=== PATIENT | female | born 1980 | race Caucasian/White ===

== ENCOUNTER 2016-12-19 09:58 | Emergency (ER) | payer OTHER ==
--- NOTE | 2016-12-19 11:32 | ED NURSING NOTES ---
Clinical Report - Nurses [facility] [address] [place] [address] 12/19/2016 10:00 Patient: MERON LUNA TRIAGE Triage time 10:07. Acuity: LEVEL 3. Chief Complaint: REDNESS and PAIN TO LEFT EYE. SWELLING TO LEFT EYELID. Alert. No acute distress. VISUAL ACUITY: Visual acuity performed without corrective lenses: left eye 20/100; right eye 20/70 (pt states she is supposed to wear glasses but doen'st have any). RAJ COMA SCORE: [place] Coma Scale: 15- eyes open spontaneously (4); best verbal response- oriented x 4 (5); best motor response- obeys commands (6). --10:14 Ledy Aragon R.N. 10:06 12/19/16. BP: 128/72. HR: 92. RR: 18. O2 saturation: 95% on room air. Temp: 98 F (oral). Pain level now: 06/24. --10:14 Ledy Aragon R.N. Weight: 133.3 kg stated. Height/Length: 60 inches Per Patient. BMI: 57.4. --10:11 Ledy Aragon R.N. Medications Abilify Oral. Albuterol Sulfate Inhalation (inhaler and nebulizer). ClonazePAM Oral. Singulair Oral. --10:08 Ledy Aragon R.N. Medication/allergy information source: the patient and patient's family. --10:14 Ledy Aragon R.N. Allergies Bees. --10:09 Ledy Aragon R.N. Depakote. --10:09 Ledy Aragon R.N. History Arrived by private vehicle. Historian: patient. Accompanied by family. Primary physician ([facility] David). This started today. She did not sustain an injury. PAST MEDICAL HX: Last normal menstrual period now. SOCIAL HX: Heavy tobacco smoker- less than 1 pack per day. History of drug use: marijuana. No alcohol use. FALL RISK ASSESSMENT: Fall risk assessment completed. No fall risk identified. FUNCTIONAL ASSESSMENT: Functional assessment: no impairments noted. LEARNING NEEDS ASSESSMENT: The learning needs assessment revealed no barriers. --10:14 Ledy Aragon R.N. PROBLEMS: Eczema. Depression. Asthma. Anxiety Reaction. --10:10 Ledy Aragon R.N. ADDITIONAL SURGERIES: Adenoidectomy. Dental Surgery. Hand. Tonsillectomy. --10:10 Ledy Aragon R.N. Assessment GENERAL / NEURO / PSYCH: Alert. Oriented X 4. Appears in no acute distress. Patient appears calm and cooperative. RESPIRATORY: Respirations not labored. SKIN: Skin is warm and dry. --10:14 Ledy Aragon R.N. Interventions ID and allergy band on patient. To treatment room. --10:14 Ledy Aragon R.N. PHYSICAL ASSESSMENT 10:16 12/19/16. Ambulatory to room. GENERAL / NEURO / PSYCH: Alert. Appears in no acute distress. RESPIRATORY: Respirations not labored. SKIN: Skin is warm and dry. --10:16 Ledy Aragon R.N. NURSING PROGRESS NOTES 10:16 12/19/16. Call light placed in reach. Side rails up x 1. Bed placed in lowest position. Brakes of bed on. --10:16 Ledy Aragon R.N. 11:22 12/19/2016 Acetaminophen (APAP) PO Tablets 650 mg given. Allergies verified and confirmed 5 rights. --11:22 Ledy Aragon R.N. 11:50. The patient is calm. Overall patient status is the same- she states feels the same. GENERAL / NEURO / PSYCH: Alert. Oriented X 4. RESPIRATORY: No respiratory distress. SKIN: Skin is warm and dry. --11:59 Ledy Aragon R.N. DISPOSITION / DISCHARGE Departure time: 1150. Condition at departure: stable. No learning barriers present. Discharge instructions provided and reviewed with the patient. Reviewed medication(s). Prescription(s) given to the patient. Patient verbalized understanding. Written instructions provided in Albanian. The patient was discharged home and accompanied by family. She left the Emergency Department ambulatory and via private vehicle. FALL RISK ASSESSMENT: Fall risk assessment completed. No fall risk identified. --11:59 Ledy Aragon R.N. 11:50 12/19/16. BP: 130/78. HR: 90. RR: 18. O2 saturation: 98% on room air. Pain level now: 05/24. --11:59 Ledy Aragon R.N. Locked/Released at 12/19/2016 12:00 by Ledy Aragon R.N.
--- NOTE | 2016-12-19 11:32 | ED ORDER SUMMARY ---
..... Patient: MERON LUNA OrderSheet [facility] VisitID: [id number] [address] [place] [address] 36y, F Registration Date/Time: 12/19/2016 ORDER SHEET Weight: 133.3 kg (stated) Allergies: Bees, Depakote GENERAL ORDERS: MEDICATION ORDERS: Acetaminophen PO 650 mg (NOW) (11:16 12/19/2016 Mandy CHAUDHRY) (Ack 11:17 Mariela R.N.) (11:22 Mariela R.N.) IV FLUIDS: ORDER SHEET NOTES: [Electronically signed by Ledy Aragon R.N. (12:00 12/19/2016)] [Electronically signed by Brayan Giron MD (22:29 12/20/2016)] [Electronically locked/signed by Ledy Aragon R.N. (12:12/19/2016)]
--- NOTE | 2016-12-19 11:32 | ED NURSING NOTES ---
Clinical Report - Nurses [facility] [address] [place] [address] 12/19/2016 10:00 Patient: MERON LUNA TRIAGE Triage time 10:07. Acuity: LEVEL 3. Chief Complaint: REDNESS and PAIN TO LEFT EYE. SWELLING TO LEFT EYELID. Alert. No acute distress. VISUAL ACUITY: Visual acuity performed without corrective lenses: left eye 20/100; right eye 20/70 (pt states she is supposed to wear glasses but doen'st have any). RAJ COMA SCORE: [place] Coma Scale: 15- eyes open spontaneously (4); best verbal response- oriented x 4 (5); best motor response- obeys commands (6). --10:14 Ledy Aragon R.N. 10:06 12/19/16. BP: 128/72. HR: 92. RR: 18. O2 saturation: 95% on room air. Temp: 98 F (oral). Pain level now: 06/24. --10:14 Ledy Aragon R.N. Weight: 133.3 kg stated. Height/Length: 60 inches Per Patient. BMI: 57.4. --10:11 Ledy Aragon R.N. Medications Abilify Oral. Albuterol Sulfate Inhalation (inhaler and nebulizer). ClonazePAM Oral. Singulair Oral. --10:08 Ledy Aragon R.N. Medication/allergy information source: the patient and patient's family. --10:14 Ledy Aragon R.N. Allergies Bees. --10:09 Ledy Aragon R.N. Depakote. --10:09 Ledy Aragon R.N. History Arrived by private vehicle. Historian: patient. Accompanied by family. Primary physician ([facility] David). This started today. She did not sustain an injury. PAST MEDICAL HX: Last normal menstrual period now. SOCIAL HX: Heavy tobacco smoker- less than 1 pack per day. History of drug use: marijuana. No alcohol use. FALL RISK ASSESSMENT: Fall risk assessment completed. No fall risk identified. FUNCTIONAL ASSESSMENT: Functional assessment: no impairments noted. LEARNING NEEDS ASSESSMENT: The learning needs assessment revealed no barriers. --10:14 Ledy Aragon R.N. PROBLEMS: Eczema. Depression. Asthma. Anxiety Reaction. --10:10 Ledy Aragon R.N. ADDITIONAL SURGERIES: Adenoidectomy. Dental Surgery. Hand. Tonsillectomy. --10:10 Ledy Aragon R.N. Assessment GENERAL / NEURO / PSYCH: Alert. Oriented X 4. Appears in no acute distress. Patient appears calm and cooperative. RESPIRATORY: Respirations not labored. SKIN: Skin is warm and dry. --10:14 Ledy Aragon R.N. Interventions ID and allergy band on patient. To treatment room. --10:14 Ledy Aragon R.N. PHYSICAL ASSESSMENT 10:16 12/19/16. Ambulatory to room. GENERAL / NEURO / PSYCH: Alert. Appears in no acute distress. RESPIRATORY: Respirations not labored. SKIN: Skin is warm and dry. --10:16 Ledy Aragon R.N. NURSING PROGRESS NOTES 10:16 12/19/16. Call light placed in reach. Side rails up x 1. Bed placed in lowest position. Brakes of bed on. --10:16 Ledy Aragon R.N. 11:22 12/19/2016 Acetaminophen (APAP) PO Tablets 650 mg given. Allergies verified and confirmed 5 rights. --11:22 Ledy Aragon R.N. 11:50. The patient is calm. Overall patient status is the same- she states feels the same. GENERAL / NEURO / PSYCH: Alert. Oriented X 4. RESPIRATORY: No respiratory distress. SKIN: Skin is warm and dry. --11:59 Ledy Aragon R.N. DISPOSITION / DISCHARGE Departure time: 1150. Condition at departure: stable. No learning barriers present. Discharge instructions provided and reviewed with the patient. Reviewed medication(s). Prescription(s) given to the patient. Patient verbalized understanding. Written instructions provided in Vincentian. The patient was discharged home and accompanied by family. She left the Emergency Department ambulatory and via private vehicle. FALL RISK ASSESSMENT: Fall risk assessment completed. No fall risk identified. --11:59 Ledy Aragon R.N. 11:50 12/19/16. BP: 130/78. HR: 90. RR: 18. O2 saturation: 98% on room air. Pain level now: 05/24. --11:59 Ledy Aragon R.N. Locked/Released at 12/19/2016 12:00 by Ledy Aragon R.N.
--- NOTE | 2016-12-19 11:32 | ED ORDER SUMMARY ---
..... Patient: MERON LUNA OrderSheet [facility] VisitID: [id number] [address] [place] [address] 36y, F Registration Date/Time: 12/19/2016 ORDER SHEET Weight: 133.3 kg (stated) Allergies: Bees, Depakote GENERAL ORDERS: MEDICATION ORDERS: Acetaminophen PO 650 mg (NOW) (11:16 12/19/2016 Mandy CHAUDHRY) (Ack 11:17 Mariela R.N.) (11:22 Mariela R.N.) IV FLUIDS: ORDER SHEET NOTES: [Electronically signed by Ledy Aragon R.N. (12:00 12/19/2016)] [Electronically signed by Brayan Giron MD (22:29 12/20/2016)] [Electronically locked/signed by Ledy Aragon R.N. (12:12/19/2016)]
--- NOTE | 2016-12-19 11:32 | ED CLINICAL REPORT ---
Clinical Report - Physicians/Mid Levels [facility] [address] [place] [address] 12/19/2016 10:00 Patient: MERON LUNA Time Seen: 10:20. Arrived- By private vehicle. Historian- patient. HISTORY OF PRESENT ILLNESS Chief Complaint: EYE PAIN, REDNESS and IRRITATION. This started last night, involves the left eye, is characterized as severe and has been constant and is still present. The patient did not sustain an injury. Not injured from contact lenses. Eye discomfort, redness, irritation and matting. Eyelid swelling. REVIEW OF SYSTEMS All systems otherwise negative, except as recorded above. PAST HISTORY The patient does not wear contact lenses. SOCIAL HISTORY Current every day heavy tobacco smoker (cigarette)- less than 1 pack per day. History of occasional drug use: marijuana. ADDITIONAL NOTES The nursing notes have been reviewed. PHYSICAL EXAM Vital Signs: 12/19/2016 10:06 BP: 128/72. HR: 92. RR: 18. O2 saturation: 95%. Temp: 98 F. Pain level now: 9/10. HEENT: Nose normal. Pharynx normal. Rt Eye: Right eye exam normal. Eyes: Visual acuity noted- see nurse's notes. Left eyelid everted for examination. Pupils equal, round and reactive to light. Accommodation normal. Funduscopic exam normal. Visual pratt normal. EOMs intact. Anterior chambers clear. Anterior chambers of normal depth. Lt Eye: Mild eyelid edema. Eyelid erythema. Injected conjunctiva. No stye present. No foreign body under the eyelid. No subconjunctival hemorrhage, conjunctival foreign body, injury to the conjunctiva or corneal foreign body or abrasion. Neck: Neck supple. Normal inspection. CVS: Normal heart rate and rhythm. Heart sounds normal. Respiratory: No respiratory distress. Breath sounds normal. Abdomen: Nontender. Extremities: Extremities negative. PROGRESS AND PROCEDURES Course of Care: Patient is stable. Old medical records ordered. Old records unavailable. Disposition: Discharged. Condition: stable. CLINICAL IMPRESSION Acute conjunctivitis of the left eye. INSTRUCTIONS Warnings: GENERAL WARNINGS: Return or contact your physician immediately if your condition worsens or changes unexpectedly, if not improving as expected, or if other problems arise. Your Current Medications: CONTINUE TAKING THE FOLLOWING MEDICATIONS: Abilify Oral. Albuterol Sulfate Inhalation : inhaler and nebulizer. ClonazePAM Oral. Singulair Oral. OTC Medications: Lacri-Lube ophthalmic ointment (available over the counter): take according to label instructions. Follow-up: Follow up with your doctor in seven days if not better. Understanding of the discharge instructions verbalized by patient. (Electronically signed by Brayan Giron MD 12/20/2016 22:29)
--- NOTE | 2016-12-19 11:32 | ED CLINICAL REPORT ---
Clinical Report - Physicians/Mid Levels [facility] [address] [place] [address] 12/19/2016 10:00 Patient: MERON LUNA Time Seen: 10:20. Arrived- By private vehicle. Historian- patient. HISTORY OF PRESENT ILLNESS Chief Complaint: EYE PAIN, REDNESS and IRRITATION. This started last night, involves the left eye, is characterized as severe and has been constant and is still present. The patient did not sustain an injury. Not injured from contact lenses. Eye discomfort, redness, irritation and matting. Eyelid swelling. REVIEW OF SYSTEMS All systems otherwise negative, except as recorded above. PAST HISTORY The patient does not wear contact lenses. SOCIAL HISTORY Current every day heavy tobacco smoker (cigarette)- less than 1 pack per day. History of occasional drug use: marijuana. ADDITIONAL NOTES The nursing notes have been reviewed. PHYSICAL EXAM Vital Signs: 12/19/2016 10:06 BP: 128/72. HR: 92. RR: 18. O2 saturation: 95%. Temp: 98 F. Pain level now: 9/10. HEENT: Nose normal. Pharynx normal. Rt Eye: Right eye exam normal. Eyes: Visual acuity noted- see nurse's notes. Left eyelid everted for examination. Pupils equal, round and reactive to light. Accommodation normal. Funduscopic exam normal. Visual pratt normal. EOMs intact. Anterior chambers clear. Anterior chambers of normal depth. Lt Eye: Mild eyelid edema. Eyelid erythema. Injected conjunctiva. No stye present. No foreign body under the eyelid. No subconjunctival hemorrhage, conjunctival foreign body, injury to the conjunctiva or corneal foreign body or abrasion. Neck: Neck supple. Normal inspection. CVS: Normal heart rate and rhythm. Heart sounds normal. Respiratory: No respiratory distress. Breath sounds normal. Abdomen: Nontender. Extremities: Extremities negative. PROGRESS AND PROCEDURES Course of Care: Patient is stable. Old medical records ordered. Old records unavailable. Disposition: Discharged. Condition: stable. CLINICAL IMPRESSION Acute conjunctivitis of the left eye. INSTRUCTIONS Warnings: GENERAL WARNINGS: Return or contact your physician immediately if your condition worsens or changes unexpectedly, if not improving as expected, or if other problems arise. Your Current Medications: CONTINUE TAKING THE FOLLOWING MEDICATIONS: Abilify Oral. Albuterol Sulfate Inhalation : inhaler and nebulizer. ClonazePAM Oral. Singulair Oral. OTC Medications: Lacri-Lube ophthalmic ointment (available over the counter): take according to label instructions. Follow-up: Follow up with your doctor in seven days if not better. Understanding of the discharge instructions verbalized by patient. (Electronically signed by Brayan Giron MD 12/20/2016 22:29)
--- NOTE | 2016-12-21 02:40 | ED MAR SUMMARY ---
..... Medication Administration Record [facility] [address] [place] [place] [address] Patient: MERON LUNA Visit ID: [id number] 36y, F Weight: 133.3 kg Height/Length: 60 in BMI: 57.4 ALLERGIES: Depakote, Bees Given 11:22 12/19/2016 Ledy Aragon R.N. Medication Administered: ACETAMINOPHEN [PO] (APAP), Dose: 650 mg Tablets PO. Medication Ordered: Acetaminophen PO 650 mg (NOW).
--- NOTE | 2016-12-21 02:40 | ED DISCHARGE INSTRUCTIONS ---
Patient: MERON LUNA General Instructions [facility] VisitID: [id number] [place] [address] 36y, F Registration Date/Time: 12/19/2016 Acute conjunctivitis of the left eye. INSTRUCTIONS Warnings: GENERAL WARNINGS: Return or contact your physician immediately if your condition worsens or changes unexpectedly, if not improving as expected, or if other problems arise. Your Current Medications: CONTINUE TAKING THE FOLLOWING MEDICATIONS: Abilify Oral. Albuterol Sulfate Inhalation : inhaler and nebulizer. ClonazePAM Oral. Singulair Oral. OTC Medications: Lacri-Lube ophthalmic ointment (available over the counter): take according to label instructions. Follow-up: Follow up with your doctor in seven days if not better. Understanding of the discharge instructions verbalized by patient. ADDITIONAL INFORMATION Conjunctivitis, Viral Viral Conjunctivitis (sometimes calledPink Eye) is a common infection of the eye. This infection is very contagious. Touching the infected eye then touching another person passes this infection. It can also be spread it from one eye to the other in this same way. The most common symptoms include redness, discharge from the eye, swollen eyelids, and a gritty or scratchy feeling in the eye. This condition will take about 7-10 days to go away. Antibiotic eye drops will not kill the virus but may be prescribed to prevent a secondary bacterial infection. Home Care: Apply a towel soaked in warm water to the affected eye 3-4 times a day (just before applying medicine to the eye). It is common to have mucus drainage during the night, causing the eyelids to become crusted by morning. Use a warm wet cloth to wipe this away. Be sure antibiotics are taken as directed until all the medicine is gone. You may use acetaminophen (Tylenol) or ibuprofen (Motrin, Advil) to control pain, unless another medicine was prescribed. In infants over six months of age, you may use ibuprofen (Children's Motrin) instead of Tylenol. [NOTE : If the patient has chronic liver or kidney disease or ever had a stomach ulcer or GI bleeding, talk with your doctor before using these medicines.] (Aspirin should never be used in anyone under 18 years of age who is ill with a fever. It may cause severe liver damage.) Wash your hands before and after touching the affected eye to prevent spreading the infection to your other eye and to others. The infected person should avoid sharing towels, washcloths and pillows with others since this may spread the infection. This illness is contagious during the first week, and children with this illness should be kept out of day care and school until the redness clears. Follow Up with your doctor or this facility as directed, or if there has not been improvement within five days. Get Prompt Medical Attention if any of the following occur: Worsening vision Increasing pain in the eye Increasing swelling or redness of the eyelid Redness spreading to the face around the eye Large amount of green or yellow drainage from the eye Severe itching in or around the eye Fever over 100.0F (37.8C) oral, or over 101.0F (38.3C) rectal You have been given the following additional information: Conjunctivitis, Viral (Electronically signed by Brayan Giron MD 12/20/2016 22:29)
--- NOTE | 2016-12-21 02:40 | ED MAR SUMMARY ---
..... Medication Administration Record [facility] [address] [place] [address] Patient: MERON LUNA Visit ID: [id number] 36y, F Weight: 133.3 kg Height/Length: 60 in BMI: 57.4 ALLERGIES: Depakote, Bees Given 11:22 12/19/2016 Ledy Aragon R.N. Medication Administered: ACETAMINOPHEN [PO] (APAP), Dose: 650 mg Tablets PO. Medication Ordered: Acetaminophen PO 650 mg (NOW).
--- NOTE | 2016-12-21 02:40 | ED MED RECONCILIATION SUMMARY ---
Patient: MERON LUNA Medication Reconciliation Report [facility] VisitID: [id number] [address] [place] [address] 36y, F Registration Date/Time: 12/19/2016 Weight: 133.3 kg Height/Length: 60 in. BMI: 57.4 ALLERGIES: Bees, Depakote The patient's Home Medications are listed below: CONTINUE TAKING THE FOLLOWING MEDICATIONS: Abilify Oral Albuterol Sulfate Inhalation, inhaler and nebulizer ClonazePAM Oral Singulair Oral The source(s) of the original Home Medication information: patient patient's family member The following Medications were given to the patient in the Emergency Department: Acetaminophen [PO] PO 650 mg, administered: 12/19/2016 11:22:00 AM The following Medications were prescribed to the patient: Lacri-Lube ophthalmic ointment (available over the counter): take according to label instructions. -- Brayan Giron MD
--- NOTE | 2016-12-21 02:40 | ED MED RECONCILIATION SUMMARY ---
Patient: MERON LUNA Medication Reconciliation Report [facility] VisitID: [id number] [address] [place] [address] 36y, F Registration Date/Time: 12/19/2016 Weight: 133.3 kg Height/Length: 60 in. BMI: 57.4 ALLERGIES: Bees, Depakote The patient's Home Medications are listed below: CONTINUE TAKING THE FOLLOWING MEDICATIONS: Abilify Oral Albuterol Sulfate Inhalation, inhaler and nebulizer ClonazePAM Oral Singulair Oral The source(s) of the original Home Medication information: patient patient's family member The following Medications were given to the patient in the Emergency Department: Acetaminophen [PO] PO 650 mg, administered: 12/19/2016 11:22:00 AM The following Medications were prescribed to the patient: Lacri-Lube ophthalmic ointment (available over the counter): take according to label instructions. -- Brayan Giron MD
== END 2016-12-19 11:50 | disposition home or self-care (01) ==
LOC: ED SRH 09:58
DX: H10.32 Unspecified acute conjunctivitis, left eye (principal); F17.210 Nicotine dependence, cigarettes, uncomplicated; J45.909 Unspecified asthma, uncomplicated

== ENCOUNTER 2016-12-31 14:32 | Emergency (ER) | payer OTHER ==
--- NOTE | 2016-12-31 15:38 | ED ORDER SUMMARY ---
..... Patient: MERON LUNA OrderSheet [facility] VisitID: [id number] [address] [place] [address] 36y, F Registration Date/Time: 12/31/2016 ORDER SHEET Weight: 133.3 kg (stated) Allergies: Bees, Depakote GENERAL ORDERS: Visual Acuity (14:57 12/31/2016 Aren Lind) (15:03 HSoule) MEDICATION ORDERS: Fluorescein Eye Strips 1 strips (NOW) (14:56 12/31/2016 Aren Lind) (Ack 15:00 HSoule) (15:38 HSoule) Proparacaine Eye Drops (Solution 0.5 %) 2 drops (place at bedside) (14:56 12/31/2016 Aren Lind) (Ack 15:00 HSoule) (15:39 HSoule) IV FLUIDS: ORDER SHEET NOTES: [Electronically signed by Ami Tejada (15:46 12/31/2016)] [Electronically signed by Raghu Jesus Dr. (01:10 01/07/2017)] [Electronically locked/signed by Ami Tejada (15:46 12/31/2016)]
--- NOTE | 2016-12-31 15:38 | ED ORDER SUMMARY ---
..... Patient: MERON LUNA OrderSheet [facility] VisitID: [id number] [address] [place] [address] 36y, F Registration Date/Time: 12/31/2016 ORDER SHEET Weight: 133.3 kg (stated) Allergies: Bees, Depakote GENERAL ORDERS: Visual Acuity (14:57 12/31/2016 Aren Lind) (15:03 HSoule) MEDICATION ORDERS: Fluorescein Eye Strips 1 strips (NOW) (14:56 12/31/2016 Aren Lind) (Ack 15:00 HSoule) (15:38 HSoule) Proparacaine Eye Drops (Solution 0.5 %) 2 drops (place at bedside) (14:56 12/31/2016 Aren Lind) (Ack 15:00 HSoule) (15:39 HSoule) IV FLUIDS: ORDER SHEET NOTES: [Electronically signed by Ami Tejada (15:46 12/31/2016)] [Electronically signed by Raghu Jesus Dr. (01:10 01/07/2017)] [Electronically locked/signed by Ami Tejada (15:46 12/31/2016)]
--- NOTE | 2016-12-31 15:38 | ED NURSING NOTES ---
Clinical Report - Nurses [facility] [address] [place] [address] 12/31/2016 14:32 Patient: MERON LUNA TRIAGE Triage time 14:40 Dec 31 2016. Acuity: LEVEL 4. Chief Complaint: REDNESS TO LEFT EYE. 14:46 12/31/16. SEPSIS SCREEN: Sepsis Screen: negative. Negative (no infection suspected/documented). RAJ COMA SCORE: Byers Coma Scale: 15- eyes open spontaneously (4); best verbal response- oriented x 4 (5); best motor response- obeys commands (6). --14:46 Ami Tejada 14:40 12/31/16. BP: 153/103. HR: 93. RR: 20. O2 saturation: 97% on room air. Temp: 97.8 F (oral). Pain level now: 9/10. --14:46 Ami Tejada VISUAL ACUITY: Visual acuity performed without corrective lenses: left eye 20/40; right eye 20/30; both eyes 20/30. Patient normally wears corrective lenses. --15:03 Ami Tejada. Weight: 133.3 kg stated. Height/Length: 60 inches Per Patient. BMI: 57.4. --14:44 Ami Tejada. Medications Abilify Oral. Albuterol Sulfate Inhalation (inhaler and nebulizer). ClonazePAM Oral. Singulair Oral. --14:41 Ami Tejada TiZANidine HCl Oral. --14:42 Ami Tejada Effexor XR Oral. --14:42 Ami Tejada. Allergies Bees. Depakote. --14:41 Ami Tejada. History Arrived by private vehicle. Historian: patient. Accompanied by friend. Primary physician (rola lind). Onset. (3 weeks). ( Patient reports about three weeks ago she was diagnosed with pink eye. She states she was given antibiotics and used them as directed. She reports an improvement to the eye but that two days ago the eye became irritated again. She states its watery, itchy and red.). She has had a moderate amount of discharge from the left eye. PAST MEDICAL HX: Immunizations: up-to-date. Last normal menstrual period- 5 days ago. SOCIAL HX: Light tobacco smoker (cigarette)- less than 1/2 a pack per day. History of occasional drug use: marijuana. No alcohol use. No infectious disease exposure. ABUSE ASSESSMENT: No report of abuse. FALL RISK ASSESSMENT: Fall risk assessment completed. No fall risk identified. NUTRITIONAL RISK ASSESSMENT: The nutritional risk assessment revealed no deficiencies. FUNCTIONAL ASSESSMENT: Functional assessment: no impairments noted. LEARNING NEEDS ASSESSMENT: The learning needs assessment revealed no barriers. SKIN INTEGRITY ASSESSMENT: Skin integrity risk assessment completed. No skin integrity risk identified. --14:46 Ami Tejada. PROBLEMS: Conjunctivitis. Asthma. Eczema. Depression. Anxiety Reaction. --14:42 Ami Tejada. ADDITIONAL SURGERIES: Adenoidectomy. Dental Surgery. Hand. Tonsillectomy. --14:42 Ami Tejada. Interventions ID band on patient. To treatment room. --14:46 Ami Tejada. PHYSICAL ASSESSMENT 14:46 12/31/16. Ambulatory to room. GENERAL / NEURO / PSYCH: Alert. Appears in no acute distress. HEENT: Conjunctival findings present: redness of the left conjunctiva. RESPIRATORY: Respirations not labored. SKIN: Skin is warm and dry. --14:46 Ami Tejada. NURSING PROGRESS NOTES Reassurance given to the patient. Two patient identifiers checked. Call light placed in reach. Patient placed in chair. Patient ready for evaluation- chart flagged and ED physician notified. --14:46 Ami Tejada 15:23 12/31/2016 FLUORESCEIN Opth soln Opthalmic solution 1 Strip given. Given in the left eye. Allergies verified and confirmed 5 rights. (By provider). --15:38 Ami Tejada 15:23 12/31/2016 Proparacaine Eye Drops 2 drop given. Given in the left eye. Allergies verified and confirmed 5 rights. --15:39 Ami Tejada. DISPOSITION / DISCHARGE 15:45 12/31/16. Condition at departure: improved and stable. The goals identified in the patient's plan of care were met. No learning barriers present. Discharge instructions provided and reviewed with the patient. Reviewed medication(s) side effects, precautions, dosing and course information. Prescription(s) given to the patient. Reviewed eye care instructions. Patient verbalized understanding. Written instructions provided in Vietnamese. ( Follow up with ophthalmology in two days, contact information provided. Return if you experience worsening of symptoms or changes to your vision.). The patient was discharged by the physician. She was discharged home and unaccompanied at time of discharge. She left the Emergency Department ambulatory and via private vehicle. Patient driving. FALL RISK ASSESSMENT: Fall risk assessment completed. No fall risk identified. --15:45 Ami Tejada 15:43 12/31/16. BP: 137/91. HR: 86. RR: 20. O2 saturation: 97% on room air. Temp: 98 F (oral). Pain level now: 0/10. --15:45 Ami Tejada. Locked/Released at 12/31/2016 15:46 by Ami Tejada,
--- NOTE | 2016-12-31 15:38 | ED CLINICAL REPORT ---
Clinical Report - Physicians/Mid Levels [facility] [address] [place] [address] 12/31/2016 14:32 Patient: MERON LUNA Arrived- By private vehicle. Historian- patient. HISTORY OF PRESENT ILLNESS Chief Complaint: EYE PAIN. This started past few days, involves the left eye and is characterized as moderate in severity. Eye pain, discomfort, redness and irritation. No eye matting. REVIEW OF SYSTEMS No fever, sore throat or cough. All systems otherwise negative, except as recorded above. PAST HISTORY See nurses notes. Tetanus immunization status is up-to-date. PHYSICAL EXAM HEENT: Ears normal. Nose normal. Pharynx normal. Head appears normal to external inspection. Eyes: The patient with 1 mm corneal abrasion to the left eye. Negative Ryley sign. No other uptake of forcing dye. No foreign body. Normal lids and lachrymal's and lashes. No proptosis. No crepitus. No pain with extraocular movement of the eye. PERRLA. Neck: Neck supple. Normal inspection. CVS: Normal heart rate and rhythm. Heart sounds normal. Respiratory: No respiratory distress. Breath sounds normal. Abdomen: Nontender. No organomegaly. : Normal genitalia. PROGRESS AND PROCEDURES Course of Care: the patient is a pleasant 36-year-old female presenting for evaluation of irritation to the left eye. On examination, patient has a corneal abrasion. No signs of corneal ulcers or perforated globe. Patient likely scratched eye during the nighttime why she was asleep. Patient with recent irritation of the eye and is likely the culprit for Irritation of the eye. No other concerning findings on examination. Please see nursing note for visual acuity. Antibiotic ointments provided for prophylactic treatment. Patient to follow up with ophthalmology for fuurther management of her corneal abrasion. Discussed with patient her workup in the emergency department, home care, follow-up, diagnosis, and return precautions. All questions have been answered. The patient expressed understanding of these instructions and was agreeable to them. CLINICAL IMPRESSION 12/31/2016 14:40 BP: 153/103. HR: 93. RR: 20. O2 saturation: 97%. Temp: 97.8 F. Pain level now: 9/10. Hypertensive. Oxygen saturation normal. Medium corneal abrasion to the left eye (acute). No foreign body. Essential hypertension. INSTRUCTIONS Warnings: GENERAL WARNINGS: Return or contact your physician immediately if your condition worsens or changes unexpectedly, if not improving as expected, or if other problems arise. Specifically return if pain, vomiting, bleeding, breathing difficulty or fever. worsening vision, increased pain, or other concerns. Your Current Medications: CONTINUE TAKING THE FOLLOWING MEDICATIONS: Abilify Oral. Albuterol Sulfate Inhalation : inhaler and nebulizer. ClonazePAM Oral. Effexor XR Oral. Singulair Oral. TiZANidine HCl Oral. Prescription Medications: Erythromycin ophthalmic ointment 0.5% : apply 0.5 inch to inner aspect of the lower lid on the affected eye every 4 hours while awake. Dispense three and one half (3.5) grams. No refill. Follow-up: Return to the emergency department as needed. Follow up with your doctor in one week. Reason for referral: recheck today's concerns. Summary of care provided to patient via paper. Screening today revealed the patient's blood pressure to be in the normal range. The patient should follow up with a primary care provider for blood pressure management. Understanding of the discharge instructions verbalized by patient. Follow-up with: Michelle Henry MD, Ophthalmology, [facility], [address] [place] [address] [place] [address] Follow up in two days. Reason for referral: recheck today's concerns. Summary of care provided to patient via paper. (Electronically signed by Raghu Jesus Dr. 01/07/2017 1:10)
--- NOTE | 2016-12-31 15:38 | ED CLINICAL REPORT ---
Clinical Report - Physicians/Mid Levels [facility] [address] [place] [address] 12/31/2016 14:32 Patient: MERON LUNA Arrived- By private vehicle. Historian- patient. HISTORY OF PRESENT ILLNESS Chief Complaint: EYE PAIN. This started past few days, involves the left eye and is characterized as moderate in severity. Eye pain, discomfort, redness and irritation. No eye matting. REVIEW OF SYSTEMS No fever, sore throat or cough. All systems otherwise negative, except as recorded above. PAST HISTORY See nurses notes. Tetanus immunization status is up-to-date. PHYSICAL EXAM HEENT: Ears normal. Nose normal. Pharynx normal. Head appears normal to external inspection. Eyes: The patient with 1 mm corneal abrasion to the left eye. Negative Ryley sign. No other uptake of forcing dye. No foreign body. Normal lids and lachrymal's and lashes. No proptosis. No crepitus. No pain with extraocular movement of the eye. PERRLA. Neck: Neck supple. Normal inspection. CVS: Normal heart rate and rhythm. Heart sounds normal. Respiratory: No respiratory distress. Breath sounds normal. Abdomen: Nontender. No organomegaly. : Normal genitalia. PROGRESS AND PROCEDURES Course of Care: the patient is a pleasant 36-year-old female presenting for evaluation of irritation to the left eye. On examination, patient has a corneal abrasion. No signs of corneal ulcers or perforated globe. Patient likely scratched eye during the nighttime why she was asleep. Patient with recent irritation of the eye and is likely the culprit for Irritation of the eye. No other concerning findings on examination. Please see nursing note for visual acuity. Antibiotic ointments provided for prophylactic treatment. Patient to follow up with ophthalmology for fuurther management of her corneal abrasion. Discussed with patient her workup in the emergency department, home care, follow-up, diagnosis, and return precautions. All questions have been answered. The patient expressed understanding of these instructions and was agreeable to them. CLINICAL IMPRESSION 12/31/2016 14:40 BP: 153/103. HR: 93. RR: 20. O2 saturation: 97%. Temp: 97.8 F. Pain level now: 9/10. Hypertensive. Oxygen saturation normal. Medium corneal abrasion to the left eye (acute). No foreign body. Essential hypertension. INSTRUCTIONS Warnings: GENERAL WARNINGS: Return or contact your physician immediately if your condition worsens or changes unexpectedly, if not improving as expected, or if other problems arise. Specifically return if pain, vomiting, bleeding, breathing difficulty or fever. worsening vision, increased pain, or other concerns. Your Current Medications: CONTINUE TAKING THE FOLLOWING MEDICATIONS: Abilify Oral. Albuterol Sulfate Inhalation : inhaler and nebulizer. ClonazePAM Oral. Effexor XR Oral. Singulair Oral. TiZANidine HCl Oral. Prescription Medications: Erythromycin ophthalmic ointment 0.5% : apply 0.5 inch to inner aspect of the lower lid on the affected eye every 4 hours while awake. Dispense three and one half (3.5) grams. No refill. Follow-up: Return to the emergency department as needed. Follow up with your doctor in one week. Reason for referral: recheck today's concerns. Summary of care provided to patient via paper. Screening today revealed the patient's blood pressure to be in the normal range. The patient should follow up with a primary care provider for blood pressure management. Understanding of the discharge instructions verbalized by patient. Follow-up with: Michelle Henry MD, Ophthalmology, [facility], [address] [place] [address] [place] [address] Follow up in two days. Reason for referral: recheck today's concerns. Summary of care provided to patient via paper. (Electronically signed by Raghu Jesus Dr. 01/07/2017 1:10)
--- NOTE | 2017-01-07 01:10 | ED DISCHARGE INSTRUCTIONS ---
Patient: MERON LUNA General Instructions [facility] VisitID: [id number] [address] [place] [id number] 36y, F Registration Date/Time: 12/31/2016 12/31/2016 14:40 BP: 153/103. HR: 93. RR: 20. O2 saturation: 97%. Temp: 97.8 F. Pain level now: 9/10. Hypertensive. Oxygen saturation normal. Medium corneal abrasion to the left eye (acute). No foreign body. Essential hypertension. INSTRUCTIONS Warnings: GENERAL WARNINGS: Return or contact your physician immediately if your condition worsens or changes unexpectedly, if not improving as expected, or if other problems arise. Specifically return if pain, vomiting, bleeding, breathing difficulty or fever. worsening vision, increased pain, or other concerns. Your Current Medications: CONTINUE TAKING THE FOLLOWING MEDICATIONS: Abilify Oral. Albuterol Sulfate Inhalation : inhaler and nebulizer. ClonazePAM Oral. Effexor XR Oral. Singulair Oral. TiZANidine HCl Oral. Prescription Medications: Erythromycin ophthalmic ointment 0.5% : apply 0.5 inch to inner aspect of the lower lid on the affected eye every 4 hours while awake. Dispense three and one half (3.5) grams. No refill. Follow-up: Return to the emergency department as needed. Follow up with your doctor in one week. Reason for referral: recheck today's concerns. Summary of care provided to patient via paper. Screening today revealed the patient's blood pressure to be in the normal range. The patient should follow up with a primary care provider for blood pressure management. Understanding of the discharge instructions verbalized by patient. Follow-up with: Michelle Henry MD, Ophthalmology, [facility], [address] [place] [address] - [address] [address] Follow up in two days. Reason for referral: recheck today's concerns. Summary of care provided to patient via paper. ADDITIONAL INFORMATION Corneal Abrasion The cornea is the clear part in the front of the eye. This sensitive area is very painful when injured. There may be tearing and your vision may be blurry until healing occurs. You may be sensitive to light. This part of the body heals quickly. You can expect the pain to go away within 24-48 hours. If the abrasion is large or deep, your doctor may apply an eye patch, although this is not always done. An antibiotic ointment or eye drops may also be used to prevent infection. Numbing drops may be used to relieve the pain temporarily so that your eyes can be examined. However, these drops cannot be prescribed for home use because that would slow down the healing process. Also, if you cant feel your eye, there is a chance of accidentally injuring your eye further without knowing it. Home Care: A cold pack (ice in a plastic bag, wrapped in a towel) may be applied over the eye (or eyepatch) for 20 minutes at a time, to reduce pain. You may use acetaminophen (Tylenol) or ibuprofen (Motrin, Advil) to control pain, unless another pain medicine was prescribed. [NOTE: If you have chronic liver or kidney disease or ever had a stomach ulcer or GI bleeding, talk with your doctor before using these medicines.] Rest your eyes and do not read until symptoms are gone. If you use contact lenses, do not wear them until all symptoms are gone. If your vision is affected by the corneal abrasion or if an eyepatch was applied, DO NOT DRIVE a motor vehicle or operate machinery until all symptoms are gone. Otherwise, you would have trouble judging distances with only one eye. If your eyes are sensitive to light, try wearing sunglasses, or stay indoors, until symptoms go away. Follow Up as advised by our staff. Serious abrasions may be referred to an presidential support specialist (pot operator). If no patch was used but the pain continues for more than 48 hours, you should have another exam. Return to this facility or contact the referral doctor to arrange this. If your eye was patched and if you were asked to remove the patch yourself, see your doctor or return to this facility if your pain is still present after the patch is removed. If you were given a return appointment for patch removal and re-exam, do not miss this. It could be harmful if the patch remains in place longer than advised. Get Prompt Medical Attention if any of the following occur: Increasing eye pain or pain that does not improve after 24 hours Discharge from the eye Increasing redness of the eye or swelling of the eyelids Your vision gets worse High Blood Pressure -- To Be Confirmed [No Tx] Your blood pressure was higher today than normal. Sometimes anxiety or pain can cause a temporary rise in blood pressure that later returns to normal. If your blood pressure is high on one measurement, this does not mean that you have hypertension (a chronic illness). However, you must have your blood pressure measured again within the next few days to find out if its still high. A normal blood pressure is 120/80 or less. The first (top) number is the "systolic" pressure. The second (bottom) number is the "diastolic" pressure. Hypertension exists when either the top number is 140 or higher, OR the bottom number is 90 or higher on repeated measurements. Blood pressure in the range of 120-140 (systolic) or 80-89 (diastolic) is considered "pre-hypertension". This means your are at risk for getting hypertension. You should have regular blood pressure checks to be sure your blood pressure is not rising. Home Care: Measure your blood pressure on 3 different days and write down the results. This can be done at your doctor's office or this facility. Some pharmacies and grocery stores offer automated blood pressure machines for your use. Follow Up: If your blood pressure is "high" (over 120/80) on 2 out of 3 days, you will need to follow up with your doctor for further evaluation and treatment. DO NOT PUT THIS OFF! Untreated high blood pressure increases the risk for heart attack, also known as acute myocardial infarction, or AMI, and stroke. It is a treatable condition. Get Prompt Medical Attention if any of the following occur: Chest pain or shortness of breath Severe headache Throbbing or rushing sound in the ears Nosebleed Sudden severe abdominal pain Extreme drowsiness, confusion or fainting Dizziness or vertigo (dizziness with spinning sensation) Weakness of an arm or leg or one side of the face Difficulty with speech or vision Erythromycin Eye ointment What is this medicine? ERYTHROMYCIN (er ith jose MATHEWS sin) is a macrolide antibiotic. It is used to treat bacterial eye infections. It also prevents a certain type of eye infection that can occur in some babies. How should I use this medicine? This medicine is only for use in the eye. Follow the directions on the prescription label. Wash hands before and after use. Tilt your head back slightly and pull your lower eyelid down with your index finger to form a pouch. Try not to touch the tip of the tube, to your eye, fingertips, or any other surface. Squeeze the end of the tube to apply a thin layer of the ointment to the inside of the lower eyelid. Close the eye gently to spread the ointment. Your vision may blur for a few minutes. Use your doses at regular intervals. Do not use your medicine more often than directed. Finish the full course prescribed by your doctor or health progressive care manager even if you think your condition is better. Do not stop using except on the advice of your doctor or health progressive care manager. Talk to your pharmacist in charge regarding the use of this medicine in children. Special care may be needed. What side effects may I notice from receiving this medicine? Side effects that you should report to your doctor or health progressive care manager as soon as possible: allergic reactions like skin rash, itching or hives, swelling of the face, lips, or tongue burning, stinging, or itching of the eyes or eyelids changes in vision redness, swelling, or pain What may interact with this medicine? Interactions are not expected. Do not use any other eye products without telling your doctor or health progressive care manager. What if I miss a dose? If you miss a dose, use it as soon as you can. If it is almost time for your next dose, use only that dose. Do not use double or extra doses. Where should I keep my medicine? Keep out of the reach of children. Store at room temperature between 15 and 30 degrees C (59 and 86 degrees F). Do not freeze. Throw away any unused ointment after the expiration date. What should I tell my health care provider before I take this medicine? if you have an unusual or allergic reaction to erythromycin, foods, dyes, or preservatives or trying to get breast-feeding What should I watch for while using this medicine? Tell your doctor or health progressive care manager if your symptoms do not improve in 2 to 3 days. You have been given the following additional information: Corneal Abrasion Hypertension, To Be Confirmed Erythromycin Eye ointment (Electronically signed by Raghu Jesus Dr. 01/07/2017 1:10)
--- NOTE | 2017-01-07 01:10 | ED DISCHARGE INSTRUCTIONS ---
Patient: MERON LUNA General Instructions [facility] VisitID: [id number] [address] [place], [place] [id number] 36y, F Registration Date/Time: 12/31/2016 12/31/2016 14:40 BP: 153/103. HR: 93. RR: 20. O2 saturation: 97%. Temp: 97.8 F. Pain level now: 9/10. Hypertensive. Oxygen saturation normal. Medium corneal abrasion to the left eye (acute). No foreign body. Essential hypertension. INSTRUCTIONS Warnings: GENERAL WARNINGS: Return or contact your physician immediately if your condition worsens or changes unexpectedly, if not improving as expected, or if other problems arise. Specifically return if pain, vomiting, bleeding, breathing difficulty or fever. worsening vision, increased pain, or other concerns. Your Current Medications: CONTINUE TAKING THE FOLLOWING MEDICATIONS: Abilify Oral. Albuterol Sulfate Inhalation : inhaler and nebulizer. ClonazePAM Oral. Effexor XR Oral. Singulair Oral. TiZANidine HCl Oral. Prescription Medications: Erythromycin ophthalmic ointment 0.5% : apply 0.5 inch to inner aspect of the lower lid on the affected eye every 4 hours while awake. Dispense three and one half (3.5) grams. No refill. Follow-up: Return to the emergency department as needed. Follow up with your doctor in one week. Reason for referral: recheck today's concerns. Summary of care provided to patient via paper. Screening today revealed the patient's blood pressure to be in the normal range. The patient should follow up with a primary care provider for blood pressure management. Understanding of the discharge instructions verbalized by patient. Follow-up with: Michelle Henry MD, Ophthalmology, [facility], [address] [place] [address] - [address] [address] Follow up in two days. Reason for referral: recheck today's concerns. Summary of care provided to patient via paper. ADDITIONAL INFORMATION Corneal Abrasion The cornea is the clear part in the front of the eye. This sensitive area is very painful when injured. There may be tearing and your vision may be blurry until healing occurs. You may be sensitive to light. This part of the body heals quickly. You can expect the pain to go away within 24-48 hours. If the abrasion is large or deep, your doctor may apply an eye patch, although this is not always done. An antibiotic ointment or eye drops may also be used to prevent infection. Numbing drops may be used to relieve the pain temporarily so that your eyes can be examined. However, these drops cannot be prescribed for home use because that would slow down the healing process. Also, if you cant feel your eye, there is a chance of accidentally injuring your eye further without knowing it. Home Care: A cold pack (ice in a plastic bag, wrapped in a towel) may be applied over the eye (or eyepatch) for 20 minutes at a time, to reduce pain. You may use acetaminophen (Tylenol) or ibuprofen (Motrin, Advil) to control pain, unless another pain medicine was prescribed. [NOTE: If you have chronic liver or kidney disease or ever had a stomach ulcer or GI bleeding, talk with your doctor before using these medicines.] Rest your eyes and do not read until symptoms are gone. If you use contact lenses, do not wear them until all symptoms are gone. If your vision is affected by the corneal abrasion or if an eyepatch was applied, DO NOT DRIVE a motor vehicle or operate machinery until all symptoms are gone. Otherwise, you would have trouble judging distances with only one eye. If your eyes are sensitive to light, try wearing sunglasses, or stay indoors, until symptoms go away. Follow Up as advised by our staff. Serious abrasions may be referred to an redeye gunner (retail property manager). If no patch was used but the pain continues for more than 48 hours, you should have another exam. Return to this facility or contact the referral doctor to arrange this. If your eye was patched and if you were asked to remove the patch yourself, see your doctor or return to this facility if your pain is still present after the patch is removed. If you were given a return appointment for patch removal and re-exam, do not miss this. It could be harmful if the patch remains in place longer than advised. Get Prompt Medical Attention if any of the following occur: Increasing eye pain or pain that does not improve after 24 hours Discharge from the eye Increasing redness of the eye or swelling of the eyelids Your vision gets worse High Blood Pressure -- To Be Confirmed [No Tx] Your blood pressure was higher today than normal. Sometimes anxiety or pain can cause a temporary rise in blood pressure that later returns to normal. If your blood pressure is high on one measurement, this does not mean that you have hypertension (a chronic illness). However, you must have your blood pressure measured again within the next few days to find out if its still high. A normal blood pressure is 120/80 or less. The first (top) number is the "systolic" pressure. The second (bottom) number is the "diastolic" pressure. Hypertension exists when either the top number is 140 or higher, OR the bottom number is 90 or higher on repeated measurements. Blood pressure in the range of 120-140 (systolic) or 80-89 (diastolic) is considered "pre-hypertension". This means your are at risk for getting hypertension. You should have regular blood pressure checks to be sure your blood pressure is not rising. Home Care: Measure your blood pressure on 3 different days and write down the results. This can be done at your doctor's office or this facility. Some pharmacies and grocery stores offer automated blood pressure machines for your use. Follow Up: If your blood pressure is "high" (over 120/80) on 2 out of 3 days, you will need to follow up with your doctor for further evaluation and treatment. DO NOT PUT THIS OFF! Untreated high blood pressure increases the risk for heart attack, also known as acute myocardial infarction, or AMI, and stroke. It is a treatable condition. Get Prompt Medical Attention if any of the following occur: Chest pain or shortness of breath Severe headache Throbbing or rushing sound in the ears Nosebleed Sudden severe abdominal pain Extreme drowsiness, confusion or fainting Dizziness or vertigo (dizziness with spinning sensation) Weakness of an arm or leg or one side of the face Difficulty with speech or vision Erythromycin Eye ointment What is this medicine? ERYTHROMYCIN (er ith jose MATHEWS sin) is a macrolide antibiotic. It is used to treat bacterial eye infections. It also prevents a certain type of eye infection that can occur in some babies. How should I use this medicine? This medicine is only for use in the eye. Follow the directions on the prescription label. Wash hands before and after use. Tilt your head back slightly and pull your lower eyelid down with your index finger to form a pouch. Try not to touch the tip of the tube, to your eye, fingertips, or any other surface. Squeeze the end of the tube to apply a thin layer of the ointment to the inside of the lower eyelid. Close the eye gently to spread the ointment. Your vision may blur for a few minutes. Use your doses at regular intervals. Do not use your medicine more often than directed. Finish the full course prescribed by your doctor or health career development facilitator even if you think your condition is better. Do not stop using except on the advice of your doctor or health career development facilitator. Talk to your stone gang sawyer regarding the use of this medicine in children. Special care may be needed. What side effects may I notice from receiving this medicine? Side effects that you should report to your doctor or health career development facilitator as soon as possible: allergic reactions like skin rash, itching or hives, swelling of the face, lips, or tongue burning, stinging, or itching of the eyes or eyelids changes in vision redness, swelling, or pain What may interact with this medicine? Interactions are not expected. Do not use any other eye products without telling your doctor or health career development facilitator. What if I miss a dose? If you miss a dose, use it as soon as you can. If it is almost time for your next dose, use only that dose. Do not use double or extra doses. Where should I keep my medicine? Keep out of the reach of children. Store at room temperature between 15 and 30 degrees C (59 and 86 degrees F). Do not freeze. Throw away any unused ointment after the expiration date. What should I tell my health care provider before I take this medicine? if you have an unusual or allergic reaction to erythromycin, foods, dyes, or preservatives or trying to get breast-feeding What should I watch for while using this medicine? Tell your doctor or health career development facilitator if your symptoms do not improve in 2 to 3 days. You have been given the following additional information: Corneal Abrasion Hypertension, To Be Confirmed Erythromycin Eye ointment (Electronically signed by Raghu Jesus Dr. 01/07/2017 1:10)
--- NOTE | 2017-01-07 01:11 | ED MED RECONCILIATION SUMMARY ---
Patient: MERON LUNA Medication Reconciliation Report [facility] VisitID: [id number] [address] [place] [address] 36y, F Registration Date/Time: 12/31/2016 Weight: 133.3 kg Height/Length: 60 in. BMI: 57.4 ALLERGIES: Bees, Depakote The patient's Home Medications are listed below: CONTINUE TAKING THE FOLLOWING MEDICATIONS: Abilify Oral Albuterol Sulfate Inhalation, inhaler and nebulizer ClonazePAM Oral Effexor XR Oral Singulair Oral TiZANidine HCl Oral The source(s) of the original Home Medication information: Not obtained. The following Medications were given to the patient in the Emergency Department: FLUORESCEIN [EYE STRIPS] Opth soln 1 Strip, administered: 12/31/2016 3:23:00 PM Proparacaine [Eye Drops] Eye Drops 2 drop, administered: 12/31/2016 3:23:00 PM The following Medications were prescribed to the patient: Erythromycin ophthalmic ointment 0.5% : apply 0.5 inch to inner aspect of the lower lid on the affected eye every 4 hours while awake. Dispense three and one half (3.5) grams. No refill. -- Raghu Jesus Dr.
--- NOTE | 2017-01-07 01:11 | ED MAR SUMMARY ---
..... Medication Administration Record [facility] [address] [place] [address] Patient: MERON LUNA Visit ID: [id number] 36y, F Weight: 133.3 kg Height/Length: 60 in BMI: 57.4 ALLERGIES: Bees, Depakote Given 15:12/31/2016 Ami Tejada, Medication Administered: FLUORESCEIN [EYE STRIPS], Dose: 1 Strip Opthalmic solution Opth soln. Medication Ordered: Fluorescein Eye Strips 1 strips (NOW). Given 15:12/31/2016 Ami Tejada, Medication Administered: PROPARACAINE [EYE DROPS], Dose: 2 drop Eye Drops. Medication Ordered: Proparacaine Eye Drops (Solution 0.5 %) 2 drops (place at bedside).
--- NOTE | 2017-01-07 01:11 | ED MAR SUMMARY ---
..... Medication Administration Record [facility] [address] [place] [address] Patient: MERON LUNA Visit ID: [id number] 36y, F Weight: 133.3 kg Height/Length: 60 in BMI: 57.4 ALLERGIES: Bees, Depakote Given 15:12/31/2016 Ami Tejada, Medication Administered: FLUORESCEIN [EYE STRIPS], Dose: 1 Strip Opthalmic solution Opth soln. Medication Ordered: Fluorescein Eye Strips 1 strips (NOW). Given 15:12/31/2016 Ami Tejada, Medication Administered: PROPARACAINE [EYE DROPS], Dose: 2 drop Eye Drops. Medication Ordered: Proparacaine Eye Drops (Solution 0.5 %) 2 drops (place at bedside).
--- NOTE | 2017-01-07 01:11 | ED MED RECONCILIATION SUMMARY ---
Patient: MERON LUNA Medication Reconciliation Report [facility] VisitID: [id number] [address] [place] [address] 36y, F Registration Date/Time: 12/31/2016 Weight: 133.3 kg Height/Length: 60 in. BMI: 57.4 ALLERGIES: Bees, Depakote The patient's Home Medications are listed below: CONTINUE TAKING THE FOLLOWING MEDICATIONS: Abilify Oral Albuterol Sulfate Inhalation, inhaler and nebulizer ClonazePAM Oral Effexor XR Oral Singulair Oral TiZANidine HCl Oral The source(s) of the original Home Medication information: Not obtained. The following Medications were given to the patient in the Emergency Department: FLUORESCEIN [EYE STRIPS] Opth soln 1 Strip, administered: 12/31/2016 3:23:00 PM Proparacaine [Eye Drops] Eye Drops 2 drop, administered: 12/31/2016 3:23:00 PM The following Medications were prescribed to the patient: Erythromycin ophthalmic ointment 0.5% : apply 0.5 inch to inner aspect of the lower lid on the affected eye every 4 hours while awake. Dispense three and one half (3.5) grams. No refill. -- Raghu Jesus Dr.
== END 2016-12-31 14:33 | disposition home or self-care (01) ==
LOC: ED SRH 14:32
DX: S05.02XA Injury of conjunctiva and corneal abrasion without foreign body, left eye, initial encounter (principal); I10 Essential (primary) hypertension; X58.XXXA Exposure to other specified factors, initial encounter; Y93.9 Activity, unspecified; Y92.9 Unspecified place or not applicable; Y99.9 Unspecified external cause status; F17.210 Nicotine dependence, cigarettes, uncomplicated; J45.909 Unspecified asthma, uncomplicated; Z79.899 Other long term (current) drug therapy